=== PATIENT | female | born 1950 | race Two or more races ===

== ENCOUNTER 2019-08-11 10:10 | Day surgery (SDC) | payer OTHER | END 2019-08-11 14:55 | disposition home or self-care (01) | LOC: AMB-ENDOS 10:10 | DX: K63.5 Polyp of colon (principal); K57.32 Diverticulitis of large intestine without perforation or abscess without bleeding ==

== ENCOUNTER 2020-10-20 10:15 | Inpatient (IN) | payer OTHER ==
[2020-10-20] MEDS ORDERED: IBERSARTAN (13:46)
[2020-10-20] MEDS ORDERED: SIMVAST PO (13:47)
[2020-10-20] MEDS ORDERED: CARDURA PO (13:47)
[2020-10-20] MEDS ORDERED: FORTAMET500 MG PO (13:48)
[2020-10-27] MEDS ORDERED: DOXAZOSIN MESYLA2 MG (11:54)
[2020-10-27] MEDS ORDERED: VITAMIN C500 M1 (11:54)
[2020-10-27] MEDS ORDERED: SIMVASTATIN40 MG (11:54)
[2020-10-27] MEDS ORDERED: IRBESARTAN-HCT1 EACH (11:54)
[2020-10-30] MEDS ORDERED: HYOSCYAMINE0.125 M1 SL (09:24)
[2020-10-30] MEDS ORDERED: INTESTINEX680 M1 PO (09:24)
[2020-10-30] MEDS ORDERED: OXYC1TAB9 PO (09:24)
== END 2020-10-30 11:47 | disposition home or self-care (01) | DRG 331 ==
LOC: SURH 10-27 07:00 → O/R 10-27 09:49 → SURH 10-27 10:15
PROVIDERS: ADMIT Surgery; ATTEND Surgery
PROC: 07BB4ZZ Excision of Mesenteric Lymphatic, Percutaneous Endoscopic Approach (ICD-10-PCS; 2020-10-27)
PROC: 0DTF4ZZ Resection of Right Large Intestine, Percutaneous Endoscopic Approach (ICD-10-PCS; principal; 2020-10-27 07:00)
DX: D12.2 Benign neoplasm of ascending colon (principal); R59.0 Localized enlarged lymph nodes; I10 Essential (primary) hypertension; E11.9 Type 2 diabetes mellitus without complications; E66.01 Morbid (severe) obesity due to excess calories; G47.33 Obstructive sleep apnea (adult) (pediatric)